=== PATIENT | female | born 2000 | race Caucasian/White ===

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

== ENCOUNTER 2018-03-28 14:31 | Emergency (ER) | payer MEDICAID ==
[~2018-03-28] VITALS: Ht 167.6 cm; Wt 59.0 kg
[2018-03-28] MEDS ORDERED: ONDANSETRON HCL 4 MG/2 ML VIAL IVP ONE (14:45)
[2018-03-28] MEDS ORDERED: NACL 0.9% 1,000 ML IV ONE (14:45)
[2018-03-28 15:20] VITALS: BP_SYST 131
[2018-03-28 15:55] LABS: POTASSIUM 3.4 mmol/L (3.5-5.1)
[2018-03-28 15:56] LABS: CALCIUM 9.2 mg/dL (8.4-11.0); CREATININE 0.78 mg/dL (0.55-1.30); TOTAL BILIRUBIN 0.9 mg/dL (0.0-1.0)
[2018-03-28 15:57] LABS: ALBUMIN 3.9 g/dL (3.4-4.8)
[2018-03-28 16:10] LABS: HEMATOCRIT 43.7 % (36-48); HEMOGLOBIN 14.8 g/dL (12.0-16.0); MEAN CORPUSCULAR VOLUME 94 fL (79.0-98.0); RED BLOOD CELL COUNT(AUTO) 4.64 MIL/uL (4.2-6.2)
[2018-03-28 16:11] LABS: BASOPHILS % (AUTO) 0.5 % (0.0-2.0); EOSINOPHILS % (AUTO) 0.4 % (0.0-4.0); LYMPHOCYTES # (AUTO) 1.1 K/uL (1.0-5.5); LYMPHOCYTES % (AUTO) 28.2 % (20.5-51.5); MEAN CORPUSCULAR HEMOGLOBIN 32 pg (27-31); MEAN CORPUSCULAR HGB CONC 34 % (32-36); MONOCYTES # (AUTO) 0.7 K/uL (0.0-1.0); MONOCYTES % (AUTO) 16.3 % (1.7-9.3); NEUTROPHILS # (AUTO) 2.2 K/uL (1.8-7.7); NEUTROPHILS % (AUTO) 54.6 % (40.0-70.0); PLATELET COUNT (AUTO) 206 K/uL (130-430); RED CELL DISTRIBUTION WIDTH 11.9 % (9.0-15.0)
[2018-03-28 18:15] VITALS: BP_SYST 120
[2018-03-28 18:21] LABS: BILIRUBIN,URINE NEGATIVE (NEGATIVE); BLOOD, URINE TRACE (NEGATIVE); CLARITY/URINE CLEAR (CLEAR); COLOR,URINE YELLOW (YELLOW); GLUCOSE,URINE NEGATIVE (NEGATIVE); KETONES,URINE 2+ (NEGATIVE); LEUKOCYTE ESTERASE ,URINE NEGATIVE (NEGATIVE); NITRITE, URINE NEGATIVE (NEGATIVE); PROTEIN URINE NEGATIVE (NEGATIVE); UROBILINOGEN,URINE 0.2 (0.2-1.0)
[2018-03-28 19:19] LABS: BACTERIA,URINE FEW /HPF (None Seen); WBC,URINE 0-3 /HPF (0-3); YEAST,URINE None Seen /HPF (None Seen)
[2018-03-28 19:20] LABS: MUCUS,URINE None Seen /LPF (None Seen)
== END 2018-03-28 18:15 | disposition home or self-care (01) ==
LOC: SED 14:31
DX: K85.90 Acute pancreatitis without necrosis or infection, unspecified (principal); R03.0 Elevated blood-pressure reading, without diagnosis of hypertension
CPT/HCPCS: 36415; 80053; 81000; 81025; 82150; 83690; 85025; 86710; 99283; J7030

== ENCOUNTER 2020-02-07 00:03 | Inpatient (IN) | payer OTHER, SELFPAY ==
[~2020-02-07] VITALS: Ht 170.2 cm; Wt 64.4 kg
[2020-02-07 00:12] VITALS: BP_SYST 132
--- NOTE | 2020-02-07 00:12 | NUR ---
Patient to ER bed 6 to gown for evaluation. Side rails up.
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
--- NOTE | 2020-02-07 01:06 | NUR ---
ER Dr. stallworth at bedside examining patient.
--- NOTE | 2020-02-07 01:19 | NUR ---
patient unable to give urine sample at this time.
--- NOTE | 2020-02-07 01:19 | NUR ---
Patient transported to radiology via ambulating, accompanied by vikash.
--- NOTE | 2020-02-07 01:24 | NUR ---
patient returned from radiology.
--- NOTE | 2020-02-07 01:35 | NUR ---
consent form for foreign body removal from rectum signed by patient, RN, and MD & placed in chart.
[2020-02-07] MEDS ORDERED: MIDAZOLAM HCL 5 MG/5 ML VIAL IM ONE ×2 (01:45→03:15)
--- NOTE | 2020-02-07 02:23 | NUR ---
Edy bajwa in ED - 02/07/[address] Alexander performing rectal exam on patient with two female RN's at bedside.
--- NOTE | 2020-02-07 02:33 | NUR ---
Dr. Alexander performing rectal exam on patient with two female RN's at bedside.
--- NOTE | 2020-02-07 03:20 | NUR ---
patient medicated per md orders. pt tolerated well.
--- NOTE | 2020-02-07 04:12 | NUR ---
Dr. Alexander performing rectal exam on patient with two female RN's at bedside.
--- NOTE | 2020-02-07 04:20 | NUR ---
Patient's code status is full code paperwork completed and placed in chart.
--- NOTE | 2020-02-07 04:25 | NUR ---
RECEIVED ADMIT ORDERS FROM DR. MALHOTRA.
--- NOTE | 2020-02-07 04:27 | NUR ---
SPOKE WITH BRENT LAMBERT RN TO REQUEST [facility] BED.
--- NOTE | 2020-02-07 04:30 | NUR ---
Medication reconciliation completed with information provided by PATIENT. Any prior medication reconciliation on file was reviewed and corrected.
--- NOTE | 2020-02-07 04:30 | NUR ---
COVID SWAB COLLECTED AND SENT TO LAB.
--- NOTE | 2020-02-07 04:35 | NUR ---
# 20 gauge angiocath placed to RAC. Use of asceptic technique. Opsite placed over site. Blood return noted. Blood for lab drawn from site. Flushed with 10 cc of normal saline. No evidence of infiltration noted. Patient tolerated well.
--- NOTE | 2020-02-07 04:40 | NUR ---
Patient will be admitted to care of [facility]. Admitted to MEDSURG unit. Will go to room 108C. Belongings list completed. Complete and up to date summary report printed. SBAR report to be given at bedside with opportunity for questions.
--- NOTE | 2020-02-07 04:46 | NUR ---
REPORT GIVEN TO KAYLIE PITTMAN FOR CONTINUATION OF CARE ONCE TAKEN TO MEDSURG UNIT.
[2020-02-07 05:00] LABS: BASOPHILS # (AUTO) 0.1 K/uL (0.0-0.2); BASOPHILS % (AUTO) 0.9 % (0.0-2.0); MEAN CORPUSCULAR HEMOGLOBIN 33 pg (27-31); MEAN CORPUSCULAR HGB CONC 34 % (32-36); MEAN CORPUSCULAR VOLUME 96 fL (79.0-98.0)
[2020-02-07] MEDS ORDERED: KCL 20 mEq in D5/0.45NS 1000mL 1,000 ML IV ONE ×2 (05:00→05:35)
[2020-02-07 05:05] LABS: EOSINOPHILS # (AUTO) 0.3 K/uL (0.0-0.4); EOSINOPHILS % (AUTO) 2.6 % (0.0-4.0); HEMATOCRIT 40.9 % (36-48); LYMPHOCYTES # (AUTO) 1.4 K/uL (1.0-5.5); LYMPHOCYTES % (AUTO) 12.6 % (20.5-51.5); MONOCYTES # (AUTO) 0.8 K/uL (0.0-1.0); MONOCYTES % (AUTO) 6.9 % (1.7-9.3); NEUTROPHILS # (AUTO) 8.5 K/uL (1.8-7.7); PLATELET COUNT (AUTO) 264 K/uL (130-430); RED BLOOD CELL COUNT(AUTO) 4.25 MIL/uL (4.2-6.2); RED CELL DISTRIBUTION WIDTH 12.8 % (9.0-15.0); WHITE BLOOD COUNT (AUTO) 11.1 K/uL (4.8-10.8)
[2020-02-07 05:09] LABS: CALCIUM 8.8 mg/dL (8.4-11.0); CREATININE 0.61 mg/dL (0.55-1.30); POTASSIUM 3.4 mmol/L (3.5-5.1)
--- NOTE | 2020-02-07 05:09 | NUR ---
Transfer to [facility]. IV present no sign or symptom of infiltration.
[2020-02-07 05:18] LABS: ALBUMIN 4.2 g/dL (3.4-4.8); TOTAL BILIRUBIN 1.5 mg/dL (0.0-1.0)
--- NOTE | 2020-02-07 05:18 | NUR ---
Initial note: Patient is in bed, resting. No acute distress. Even, nonlabored breathing on room air. IV site is patent and intact. Bed is locked at lowest position. Bed alarm on. Side rails up x2. Call light is with patient. Safety and fall precautions in place. Will continue with plan of care.
--- NOTE | 2020-02-07 05:18 | NUR ---
ADMIT NOTE Received pt from ER to the floor with a diagnosis of foreign object in body-rectum. Admission process initiated. patient oriented to pain management, safety and call light-teach back done.
[2020-02-07 05:28] VITALS: BP_SYST 123
--- NOTE | 2020-02-07 06:42 | NUR ---
Closing note: Patient in bed, watching TV. No acute distress. Even, nonlabored breathing on room air. IV site is patent and intact. All needs met. Bed is locked at lowest position. Side rails up x2. Call light is with patient. Safety and fall precautions in place. Will endorse care to dayshift RN.
[2020-02-07 07:30] VITALS: BP_SYST 115
--- NOTE | 2020-02-07 07:30 | NUR ---
INITIAL ROUNDS Received pt AAOx4, no s/s resp distress, no c/o pain or discomfort. IVF infusing well to RAC at ordered rate with no s/s infiltration to site. Plan of care for the day reviewed with pt-pt verbalized her understanding. Pt stated she went to the bathroom earlier, voided and noted a small amount of blood when she wiped-will inform MD. Pain management, skin and safety discussed-teach back done. Pt NPO for possible surgery-pt verbalized her understanding. Call light within reach.
--- NOTE | 2020-02-07 11:51 | NUR ---
DC Planning: LVM to [place], cm at [facility]: new admission today and planning for surgery by 1 pm. >> Pt aware and agreed with the possible transfer to network if needed post op.
[2020-02-07 12:18] VITALS: BP_SYST 103
--- NOTE | 2020-02-07 12:45 | NUR ---
TO OR Pt left floor via bed to surgery in no distress.
[2020-02-07] MEDS ORDERED: ONDANSETRON HCL 4 MG/2 ML VIAL IVP PRN (13:45)
[2020-02-07] MEDS ORDERED: KETOROLAC TROMETHAMINE 30 MG VIAL IVP PRN (13:45)
[2020-02-07] MEDS ORDERED: HYDROmorphone 1 MG INJ. 1 MG/ML AMPUL IVP PRN (13:45)
[2020-02-07] MEDS ORDERED: IBUPROFEN 600 MG TABLET PO ONE (13:45)
[2020-02-07] MEDS ORDERED: NALOXONE HCL 0.4 MG/ML AMP (NARCAN) IVP PRN (13:45)
--- NOTE | 2020-02-07 14:39 | NUR ---
BACK FROM OR Received report from Radha RN, pt AAOx4 with no s/s resp distress, no c/o pain or discomfort. Pt ambulated to the bathroom, voided. Pt given ice chips. Call light within reach.
[2020-02-07 16:14] VITALS: BP_SYST 103
[2020-02-07 16:55] VITALS: BP_SYST 103
--- NOTE | 2020-02-07 17:02 | NUR ---
MED ROUNDS Pt sitting up in bed with no c/o pain or discomfort. Pt seen by Fatoumata Liang and D/C order given. Pt eating Jello with no c/o GI distress, tolerating water. Call light within reach.
[2020-02-07] MEDS ORDERED: ROCURONIUM BROMIDE 10 MG/ML (ZEMURON) IV ONE (17:34)
[2020-02-07] MEDS ORDERED: SUCCINYLCHOLINE CHLORIDE 20 MG/ML(QUELICIN) IVP ONE (17:34)
[2020-02-07] MEDS ORDERED: SEVOFLURANE 15 MIN GAS INH ONE (17:34)
[2020-02-07] MEDS ORDERED: LR 1,000 ML IV.SOLN IV ONE (17:34)
[2020-02-07] MEDS ORDERED: NS IRRIG SOLN 1000 ML IR ONE (17:34)
[2020-02-07] MEDS ORDERED: fentaNYL CITRATE/PF 100 MCG/2 ML AMP IVP ONE (17:34)
--- NOTE | 2020-02-07 17:35 | NUR ---
PATIENT DISCHARGED HOME Patient given D/C instructions. Exit Care on Foeign Body Removal, After Care explained and provided. Patient verbalized her understanding. MD discussed with patient the results and treatment provided. Ambulatory with steady gait for discharge to home. Patient in stable condition, ID band removed. IV catheter removed, intact and dressing applied, no active bleeding. Patient educated on pain management. All belongings sent with patient. Patient left floor ambulatory to private vehicle in no distress.
== END 2020-02-07 17:35 | disposition home or self-care (01) | DRG 395 ==
LOC: SED 00:03 → SMU 04:24
PROVIDERS: ADMIT Family Medicine; ATTEND Family Medicine
PROC: 0DCP8ZZ Extirpation of Matter from Rectum, Via Natural or Artificial Opening Endoscopic (ICD-10-PCS; principal; 2020-02-07 13:00)
DX: T18.5XXA Foreign body in anus and rectum, initial encounter (principal); X58.XXXA Exposure to other specified factors, initial encounter; Z20.828 Contact with and (suspected) exposure to other viral communicable diseases; Z56.0 Unemployment, unspecified; Y93.89 Activity, other specified; Y92.89 Other specified places as the place of occurrence of the external cause; Y99.8 Other external cause status
CPT/HCPCS: 36415; 74018; 80053; 84703; 85025; 88300; 99285; J0330; J2250; J3010; J7120

== ENCOUNTER 2020-09-17 09:31 | Emergency (ER) | payer MEDICAID, OTHER, SELFPAY ==
[~2020-09-17] VITALS: Ht 167.6 cm; Wt 54.4 kg
[2020-09-17 09:39] VITALS: BP_SYST 163
[2020-09-17] MEDS ORDERED: PANTOPRAZOLE SODIUM 40 MG/VIAL (PROTONIX) IVP ONE (10:15)
[2020-09-17] MEDS ORDERED: DIPHENHYDRAMINE INJ 50 MG/ML VIAL IVP ONE (10:15)
[2020-09-17] MEDS ORDERED: MORPHINE 4 MG INJ. 4 MG/ML VIAL IVP ONE (10:15)
[2020-09-17] MEDS ORDERED: NACL 0.9% 1,000 ML IV ONE (10:15)
[2020-09-17] MEDS ORDERED: ONDANSETRON HCL 4 MG/2 ML VIAL IVP ONE (10:15)
[2020-09-17 10:20] LABS: BILIRUBIN,URINE NEGATIVE (NEGATIVE); BLOOD, URINE 3+ (NEGATIVE); COLOR,URINE YELLOW (YELLOW); GLUCOSE,URINE NEGATIVE (NEGATIVE); KETONES,URINE TRACE (NEGATIVE); LEUKOCYTE ESTERASE ,URINE NEGATIVE (NEGATIVE); NITRITE, URINE NEGATIVE (NEGATIVE); PROTEIN URINE TRACE (NEGATIVE); UROBILINOGEN,URINE 0.2 (0.2-1.0)
[2020-09-17 10:23] LABS: CALCIUM 9.3 mg/dL (8.4-11.0); CREATININE 0.97 mg/dL (0.55-1.30); POTASSIUM 3.4 mmol/L (3.5-5.1)
[2020-09-17 10:28] LABS: CLARITY/URINE SLIGHTLY HAZY (CLEAR)
[2020-09-17 10:29] LABS: ALBUMIN 3.8 g/dL (3.4-4.8); TOTAL BILIRUBIN 1.5 mg/dL (0.0-1.0)
[2020-09-17 10:39] LABS: BASOPHILS # (AUTO) 0.2 K/uL (0.0-0.2); BASOPHILS % (AUTO) 1.2 % (0.0-2.0); EOSINOPHILS # (AUTO) 1.6 K/uL (0.0-0.4); EOSINOPHILS % (AUTO) 11.7 % (0.0-4.0); HEMOGLOBIN 14.6 g/dL (12.0-16.0); LYMPHOCYTES # (AUTO) 2.6 K/uL (1.0-5.5); LYMPHOCYTES % (AUTO) 18.4 % (20.5-51.5); MEAN CORPUSCULAR HEMOGLOBIN 32 pg (27-31); MEAN CORPUSCULAR HGB CONC 34 % (32-36); MEAN CORPUSCULAR VOLUME 96 fL (79.0-98.0); MONOCYTES # (AUTO) 0.5 K/uL (0.0-1.0); MONOCYTES % (AUTO) 3.5 % (1.7-9.3); NEUTROPHILS # (AUTO) 9.1 K/uL (1.8-7.7); NEUTROPHILS % (AUTO) 65.2 % (40.0-70.0); PLATELET COUNT (AUTO) 418 K/uL (130-430); RED BLOOD CELL COUNT(AUTO) 4.49 MIL/uL (4.2-6.2); RED CELL DISTRIBUTION WIDTH 13.1 % (9.0-15.0); WHITE BLOOD COUNT (AUTO) 13.9 K/uL (4.8-10.8)
[2020-09-17] MEDS ORDERED: fentaNYL CITRATE/PF 100 MCG/2 ML AMP IVP ONE (10:45)
[2020-09-17 10:54] LABS: BACTERIA,URINE FEW /HPF (None Seen); MUCUS,URINE 1+ /LPF (None Seen); URINE AMORPHOUS URATE 1+ /HPF (None Seen); WBC,URINE 0-3 /HPF (0-3)
[2020-09-17] MEDS ORDERED: IPRATROPIUM BROM 0.5 MG/2.5 ML VIAL.NEB (ATROVENT) INH ONE (12:47)
[2020-09-17] MEDS ORDERED: LevALBUTEROL HCL 1.25 MG/0.5 ML *CONC.* VIAL.NEB (XOPENEX CONC.) INH ONE (12:47)
[2020-09-17 13:29] VITALS: BP_SYST 115
== END 2020-09-17 13:29 | disposition home or self-care (01) ==
LOC: SED 09:31
DX: N20.0 Calculus of kidney (principal)
CPT/HCPCS: 36415; 74176; 76376; 80053; 81000; 81025; 83690; 85025; 96361; 96374; 96375; 99284; C9113; J1200; J2270; J2405; J3010; J7030; J7612